=== PATIENT | female | born 2000 | race Caucasian/White ===

== ENCOUNTER 2022-03-08 19:12 | Emergency (ER) | payer OTHER ==
[~2022-03-08] VITALS: Ht 170.2 cm; Wt 95.5 kg
[2022-03-08 19:15] VITALS: BP 122/66
[2022-03-08 19:50] LABS: COVID AG,FIA SOURCE NASAL SWAB
[2022-03-08 20:10] LABS: INFLUENZA TYPE A NEGATIVE FOR TYPE A (NEGATIVE); INFLUENZA TYPE B NEGATIVE FOR TYPE B (NEGATIVE)
== END 2022-03-08 21:04 | disposition home or self-care (01) ==
LOC: EMS 19:14
DX: J40 Bronchitis, not specified as acute or chronic (principal); Z20.822 Contact with and (suspected) exposure to COVID-19
CPT/HCPCS: 71045; 87804; 99284